=== PATIENT | male | born 1940 | race Caucasian/White ===

== ENCOUNTER 2017-10-22 09:40 | Inpatient (IN) | payer OTHER ==
[2017-10-22] MEDS ORDERED: IPRATROPIUM/ALBUTEROL 3 ML DEYVIAL IH ONE (09:57)
--- NOTE | 2017-10-22 10:15 | CPEKG ---
Heart Rate: 98 RR Interval: 612 P-R Interval: 116 QRSD Interval: 120 QT Interval: 396 QTC Interval: 506 P [place]: 90 QRS [place]: -116 T Wave [place]: -37 EKG Severity - ABNORMAL ECG - EKG Impression: SINUS RHYTHM EKG Impression: MULTIPLE ATRIAL PREMATURE COMPLEXES EKG Impression: IVCD, CONSIDER ATYPICAL RBBB Electronically Signed By: Indu Garcia 25-Oct-2017 09:08:27
[2017-10-22 10:22] LABS: PLATELET COUNT 184 10^3/uL (150-400)
[2017-10-22 10:45] LABS: PROTIME(PATIENT) 13.4 SEC (12.0-15.0)
[2017-10-22 11:07] LABS: CREATINE KINASE 2505 IU/L (0-224)
[2017-10-22] MEDS ORDERED: NS 1,000 ML IV ONE ×2 (12:25→13:32)
--- NOTE | 2017-10-22 12:25 | EDPHY ---
H & P HPI/ROS: CHIEF COMPLAINT: HISTORY OF PRESENT ILLNESS: REVIEW OF SYSTEMS: A TEN POINT REVIEW OF SYSTEMS WAS PERFORMED AND IS NEGATIVE WITH THE EXCEPTION OF THE ITEMS MENTIONED IN THE HPI. PAST MEDICAL HISTORY: PAST SURGICAL HISTORY: FAMILY HISTORY: SOCIAL HISTORY: GENERAL APPEARANCE: ALERT. VITAL SIGNS REVIEWED. * EYES: PUPILS EQUAL AND ROUND, NO CONJUNCTIVAL INJECTION, NO DISCHARGE. ANICTERIC. ENT, MOUTH: MUCOUS MEMBRANES ARE MOIST, NO OROPHARYNGEAL ERYTHEMA OR EDEMA. NECK: NO LYMPHADENOPATHY, SUPPLE. RESPIRATORY: LUNGS ARE CLEAR TO AUSCULTATION; NO WHEEZES, RALES, OR RHONCHI. CARDIOVASCULAR: REGULAR RATE AND RHYTHM; NO MURMUR, RUB, OR GALLOP. GASTROINTESTINAL: ABDOMEN IS SOFT AND NONTENDER, NO MASSES OR ORGANOMEGALY, BOWEL SOUNDS NORMAL. SKIN: WARM AND DRY, NO RASHES ON EXPOSED SKIN, NORMAL COLOR. BACK: NONTENDER TO PALPATION OVER THE THORACOLUMBAR SPINE. NO CVAT. EXTREMITIES: NO LOWER EXTREMITY EDEMA, NO CALF TENDERNESS OR SWELLING. NEUROLOGICAL: ALERT AND ORIENTED. MOVING ALL FOUR EXTREMITIES EASILY AND EQUALLY. CRANIAL NERVES II THROUGH XII ARE EXAMINED AND ARE INTACT (VISUAL ACUITY NOT TESTED). STRENGTH IS 5 OVER 5 BILATERALLY WITH TESTING OF ALL MAJOR MOTOR GROUPS. SENSATION IS INTACT TO LIGHT TOUCH OVER ALL 4 EXTREMITIES. DEEP TENDON REFLEXES ARE 2+ IN THE BICEPS AND KNEES BILATERALLY. GAIT IS NORMAL. TUMBIO-CW-[id number] IS PERFORMED ACCURATELY. PSYCHIATRIC: NORMAL AFFECT. - Personal History Current Tetanus/Diphtheria Vaccine: Unsure Current Tetanus Diphtheria and Acellular Pertussis (TDAP): Unsure - Social History Smoking Status: Current every day smoker Constitutional: Initial Vital Signs O2 Sat (%) 96 10/22/17 09:56 O2 (L/minute) 4 Allergies/Adverse Reactions: No Known Allergies Allergy (Unverified 10/22/17 10:08) Home Medications: Medication Instructions Recorded Aspirin 10/22/17 Atorvastatin Calcium [Lipitor] 10/22/17 Carbidopa 10/22/17 Omeprazole 10/22/17 Prevacid 10/22/17 Sinemet 10/100 MG (*) 10/22/17 traZODone 10/22/17 Medical Decision Making - Diagnostics Imaging Results: Imaging Impressions Hip X-Ray 10/22/17 09:56 Impression: There is no acute osseous abnormality identified. If there is further clinical concern regarding the patient's pain, either CT or MR imaging could be considered. Shoulder X-Ray 10/22/17 09:56 Impression: There is no acute osseous abnormality identified. If there is progression of the patient's shoulder pain, MR imaging could be scheduled. - Data Points Laboratory Results: Laboratory Results 10/22/17 10:18 10/22/17 10:18 10/22/17 10/22/17 10/22/17 10:18 10:18 10:18 WBC 8.04 10^3/uL 10^3/uL (3.80-9.50) RBC 4.38 10^6/uL L 10^6/uL (4.40-6.38) Hgb 15.0 g/dL g/dL (13.7-17.5) Hct 43.9 % % (40.0-51.0) MCV 100.2 fL H fL (81.5-99.8) MCH 34.2 pg H pg (27.9-34.1) MCHC 34.2 g/dL g/dL (32.4-36.7) RDW 13.0 % % (11.5-15.2) Plt Count 184 10^3/uL 10^3/uL (150-400) MPV 9.6 fL fL (8.7-11.7) Neut % (Auto) 84.3 % H % (39.3-74.2) Lymph % (Auto) 4.6 % L % (15.0-45.0) [place] % (Auto) 10.7 % % (4.5-13.0) Eos % (Auto) 0.0 % L % (0.6-7.6) Baso % (Auto) 0.2 % L % (0.3-1.7) Nucleat RBC Rel Count 0.0 % % (0.0-0.2) Absolute Neuts (auto) 6.77 10^3/uL H 10^3/uL (1.70-6.50) Absolute Lymphs (auto) 0.37 10^3/uL L 10^3/uL (1.00-3.00) Absolute Monos (auto) 0.86 10^3/uL H 10^3/uL (0.30-0.80) Absolute Eos (auto) 0.00 10^3/uL L 10^3/uL (0.03-0.40) Absolute Basos (auto) 0.02 10^3/uL 10^3/uL (0.02-0.10) Absolute Nucleated RBC 0.00 10^3/uL 10^3/uL (0-0.01) Immature Gran % 0.2 % % (0.0-1.1) Immature Gran # 0.02 10^3/uL 10^3/uL (0.00-0.10) PT 13.4 SEC SEC (12.0-15.0) INR 1.00 (0.83-1.16) APTT 27.5 SEC SEC (23.0-38.0) Sodium 139 mEq/L mEq/L (135-145) Potassium 5.5 mEq/L H mEq/L (3.5-5.2) Chloride 98 mEq/L mEq/L (97-110) Carbon Dioxide 25 mEq/l mEq/l (22-31) Anion Gap 16 mEq/L mEq/L (8-16) BUN 26 mg/dL H mg/dL (7-23) Creatinine 1.0 mg/dL mg/dL (0.7-1.3) Estimated GFR > 60 Glucose 97 mg/dL mg/dL (70-100) Calcium 9.1 mg/dL mg/dL (8.5-10.4) Creatine Kinase 2505 IU/L H IU/L (0-224) CK-MB (CK-2) Fraction 11.10 ng/mL H ng/mL (0.00-3.19) CK-MB (CK-2) % 0.4 % % (0.0-4.0) Creatine Kinase Interp NEGATIVE (NEGATIVE) Troponin I 0.078 ng/mL H ng/mL (0.000-0.034) Ethyl Alcohol < 10 mg/dL mg/dL (0-10) Medications Given: Discontinued Medications Albuterol/Ipratropium (Duoneb) 3 ml IH EDNOW ONE Stop: 10/22/17 09:58 Last Admin: 10/22/17 10:14 Dose: 3 ml Departure - Departure Referrals: NONE *PRIMARY CARE P,. [Primary Care Provider] - As per Instructions
--- NOTE | 2017-10-22 13:22 | EDPHY ---
H & P HPI/ROS: CHIEF COMPLAINT: Left shoulder pain HISTORY OF PRESENT ILLNESS: This is a 77-year-old male with a history of oxygen -dependent COPD and alcohol abuse who arrives by ambulance after being "found down "at home. He has no recollection of why he was on the floor. He does not know how long he had been on the floor. He admits to daily alcohol intake. His is out of town and apparently has not been eating or drinking much water. The patient tells me that his [id number]-[id number] took his oxygen tank. Paramedics report that a family member states he was last seen over 12 hr ago and at that time seemed normal. He complained initially of some left shoulder pain and some right hip pain. He has no other complaints. He denies headache, neck pain, back pain, difficulty breathing, and abdominal pain. He denies chest pain. I spoke with his on the phone and she tells me that he has had progressive cognitive decline over the past 6-8 months. REVIEW OF SYSTEMS: A ten point review of systems was performed and is negative with the exception of the items mentioned in the HPI. Past medical history: 1. Alcohol abuse 2. COPD, oxygen dependent 3. Hyperlipidemia 4. Peptic ulcer disease 5. TIA Past surgical history: Noncontributory Social history: He and his live independently in [place]. He drinks 2-3 alcoholic mixed drinks daily. General Appearance: Alert. Vital signs reviewed. Heart rate 108, blood pressure 162/89. Head: Normocephalic atraumatic. Eyes: Pupils equal and round, no conjunctival injection, no discharge. Anicteric. ENT, Mouth: Mucous membranes are moist, no oropharyngeal erythema or edema. Neck: Nontender to palpation over the cervical spine. No pain with active range of motion of his neck. Respiratory: Lungs are clear to auscultation; no wheezes, rales, or rhonchi. Cardiovascular: Regular rate and rhythm; no murmur, rub, or gallop. Gastrointestinal: Abdomen is soft and nontender, no masses or organomegaly, bowel sounds normal. Skin: Warm and dry, no rashes on exposed skin, normal color. There is a decubitus over the left hip. He has scabs along the anterior tibia on the left. Back: Nontender to palpation over the thoracolumbar spine. No CVAT. Extremities: No lower extremity edema, no calf tenderness or swelling. No long bone tenderness. Full active range of motion of his left shoulder. There is an abrasion over the posterior left shoulder. Mild tenderness to palpation over the right hip. He is able to move his hip. Neurological: Alert and oriented to person, place, and year. Moving all four extremities easily and equally. Cranial nerves II through XII are examined and are intact (visual acuity not tested). Strength is 5 over 5 bilaterally with testing of all major motor groups. Sensation is intact to light touch over all 4 extremities. Psychiatric: Normal affect. - Personal History Current Tetanus/Diphtheria Vaccine: Unsure Current Tetanus Diphtheria and Acellular Pertussis (TDAP): Unsure - Social History Smoking Status: Current every day smoker Constitutional: Initial Vital Signs Temperature (C) 37 C 10/22/17 09:39 Heart Rate 108 H 10/22/17 09:39 Respiratory Rate 20 10/22/17 09:39 Blood Pressure 162/89 H 10/22/17 09:39 O2 Sat (%) 98 10/22/17 09:39 O2 Delivery Mode Nasal Cannula O2 (L/minute) 4 Allergies/Adverse Reactions: No Known Allergies Allergy (Unverified 10/22/17 10:08) Home Medications: Medication Instructions Recorded Aspirin EC [Aspirin EC 325 mg (*)] 325 mg PO DAILY 10/22/17 Atorvastatin Calcium [Lipitor 20 20 mg PO HS 10/22/17 mg (*)] Omeprazole 20 mg PO HS 10/22/17 traZODone [traZODONE 50MG (*)] 50 mg PO HS PRN 10/22/17 Medical Decision Making - Diagnostics Imaging Results: Imaging Impressions Hip X-Ray 10/22/17 09:56 Impression: There is no acute osseous abnormality identified. If there is further clinical concern regarding the patient's pain, either CT or MR imaging could be considered. Shoulder X-Ray 10/22/17 09:56 Impression: There is no acute osseous abnormality identified. If there is progression of the patient's shoulder pain, MR imaging could be scheduled. ED Course/Re-evaluation: I spoke with [facility] in they have agreed to hospitalizing this patient at [facility]. X-ray of the shoulder and hip are negative for fracture or dislocation. I have not found evidence of traumatic injuries. He does not have neck or back pain. His abdomen is soft and nontender. Although he apparently falls frequently and is a fall risk, I do not think that his presentation today is the result of direct trauma. He arrived as a limited trauma activation, but I feel that this is more a situation of inability to care for himself at home--likely secondary to alcohol abuse, overall failure to thrive, dehydration, and perhaps dementia. Creatine kinases 2500. Potassium is slightly elevated at 5.5. I expect these to improve with rehydration. 1 L normal saline was ordered in the emergency department. I have not found evidence of traumatic injuries aside from an abrasion on his shoulder and his right hip. He has remained neurologically stable throughout his stay in the emergency department. At this point in time I do not suspect intracranial hemorrhage. I do not see evidence of direct trauma to the head. He has a troponin that is in the intermediate level. He does not complain of chest pain and cannot recall any chest pains prior to falling to the floor. Serial troponins will be obtained. I have an EKG from [place] and do not see significant changes. - Data Points Laboratory Results: Laboratory Results 10/22/17 10:18 10/22/17 10:18 10/22/17 10/22/17 10/22/17 10:18 10:18 10:18 WBC 8.04 10^3/uL 10^3/uL (3.80-9.50) RBC 4.38 10^6/uL L 10^6/uL (4.40-6.38) Hgb 15.0 g/dL g/dL (13.7-17.5) Hct 43.9 % % (40.0-51.0) MCV 100.2 fL H fL (81.5-99.8) MCH 34.2 pg H pg (27.9-34.1) MCHC 34.2 g/dL g/dL (32.4-36.7) RDW 13.0 % % (11.5-15.2) Plt Count 184 10^3/uL 10^3/uL (150-400) MPV 9.6 fL fL (8.7-11.7) Neut % (Auto) 84.3 % H % (39.3-74.2) Lymph % (Auto) 4.6 % L % (15.0-45.0) [place] % (Auto) 10.7 % % (4.5-13.0) Eos % (Auto) 0.0 % L % (0.6-7.6) Baso % (Auto) 0.2 % L % (0.3-1.7) Nucleat RBC Rel Count 0.0 % % (0.0-0.2) Absolute Neuts (auto) 6.77 10^3/uL H 10^3/uL (1.70-6.50) Absolute Lymphs (auto) 0.37 10^3/uL L 10^3/uL (1.00-3.00) Absolute Monos (auto) 0.86 10^3/uL H 10^3/uL (0.30-0.80) Absolute Eos (auto) 0.00 10^3/uL L 10^3/uL (0.03-0.40) Absolute Basos (auto) 0.02 10^3/uL 10^3/uL (0.02-0.10) Absolute Nucleated RBC 0.00 10^3/uL 10^3/uL (0-0.01) Immature Gran % 0.2 % % (0.0-1.1) Immature Gran # 0.02 10^3/uL 10^3/uL (0.00-0.10) PT 13.4 SEC SEC (12.0-15.0) INR 1.00 (0.83-1.16) APTT 27.5 SEC SEC (23.0-38.0) Sodium 139 mEq/L mEq/L (135-145) Potassium 5.5 mEq/L H mEq/L (3.5-5.2) Chloride 98 mEq/L mEq/L (97-110) Carbon Dioxide 25 mEq/l mEq/l (22-31) Anion Gap 16 mEq/L mEq/L (8-16) BUN 26 mg/dL H mg/dL (7-23) Creatinine 1.0 mg/dL mg/dL (0.7-1.3) Estimated GFR > 60 Glucose 97 mg/dL mg/dL (70-100) Calcium 9.1 mg/dL mg/dL (8.5-10.4) Creatine Kinase 2505 IU/L H IU/L (0-224) CK-MB (CK-2) Fraction 11.10 ng/mL H ng/mL (0.00-3.19) CK-MB (CK-2) % 0.4 % % (0.0-4.0) Creatine Kinase Interp NEGATIVE (NEGATIVE) Troponin I 0.078 ng/mL H ng/mL (0.000-0.034) Ethyl Alcohol < 10 mg/dL mg/dL (0-10) Medications Given: Albuterol/Ipratropium (Duoneb) 3 ml IH QID [place] Stop: 04/20/18 15:59 Last Admin: 10/22/17 15:37 Dose: 3 ml Discontinued Medications Albuterol/Ipratropium (Duoneb) 3 ml IH EDNOW ONE Stop: 10/22/17 09:58 Last Admin: 10/22/17 10:14 Dose: 3 ml Sodium Chloride (Ns) 1,000 mls @ 0 mls/hr IV EDNOW ONE; Wide Open PRN Reason: Protocol Stop: 10/22/17 12:26 Last Admin: 10/22/17 12:45 Dose: 1,000 mls Departure - Departure Disposition: [facility] Inpatient Acute Clinical Impression: Failure to thrive in adult, Alcohol abuse, Elevated troponin Condition: Fair
[2017-10-22] MEDS ORDERED: ALBUTEROL 3 ML DEYVIAL IH PRN (13:32)
[2017-10-22] MEDS ORDERED: ONDANSETRON DISINTEGRATING 4 MG TAB PO PRN (13:32)
[2017-10-22] MEDS ORDERED: ONDANSETRON 4 MG/2 ML VIAL IVP PRN (13:32)
--- NOTE | 2017-10-22 14:48 | GHP ---
[f rep st] HISTORY AND PHYSICAL DATE OF ADMISSION: 10/22/2017 CHIEF COMPLAINT: Found down. HISTORY OF PRESENT ILLNESS: This is a 77-year-old male with a history of COPD and a TIA, who EMS bro ught from his home, being found down on the ground, unable to get himself safely to food or water. P solo reports that his llycdp-ol-axl took his oxygen, and without oxygen he became weak, unstable an d fell, and was unable to get himself safely up off the ground. The patient reports that he falls fr equently at home. Currently, lives with his who is out of town in [place]. Since the time that she has left, he believes that he has not successfully had a meal or taken any meaningful water. Th e patient reports chronic shortness of breath. Denies any new cough or productive sputum. Denies an y subjective fevers or chills. Denies headaches. Denies vision changes. Denies chest pain or palpi tations. Denies abdominal pain, diarrhea. Denies dysuria, hematuria, or lower extremity edema. The patient is reporting left shoulder pain from a fall, but reports that it is more chronic in the last few days. PAST MEDICAL HISTORY: 1. COPD. 2. Hyperlipidemia. 3. History of a TIA. 4. History of peptic ulcer disease. 5. Reported dementia from his . 6. History of alcohol abuse. FAMILY HISTORY: Negative for strokes. SOCIAL HISTORY: The patient enjoys several grapefruit and vodkas a day. Denies tobacco or illicit d rugs. REVIEW OF SYSTEMS: A 10-point review of systems is negative with the exception of that reported in t he HPI. ADVANCED DIRECTIVES: Patient wishes to be full cor, full tube. His would be his medical decisi on maker. PHYSICAL EXAMINATION: VITAL SIGNS: Blood pressure 135/105, heart rate 95, respiratory rate 16, 95% on 4 L. GENERAL: This is a cachectic-appearing male in no acute distress. HEENT: Notable for dry mucous membranes. Eye exam is negative for any icterus. CARDIAC: Patient is irregularly irregular. Quiet systolic murmur. PULMONARY: Expiratory wheezing bilaterally. No rales or rhonchi are apprec iated. GASTROINTESTINAL: Positive bowel sounds. ABDOMEN: Soft and nontender. MUSCULOSKELETAL: N egative for any lower extremity edema. SKIN: P at has no rashes. Has 2, what appear to be pressure ulcerations, on his left hip. PSYCHIATRIC: He is cooperative and pleasant on interview and examinat ion. NEUROLOGIC: He is alert and oriented x3. LABORATORY DATA: White count 8.04, hematocrit 43.9, MCV 102, platelet count 184. Creatinine 1.0, BU N 26, potassium 5.5. CK 2505. Troponin 0.078. Blood alcohol less than 10. Hip x-ray, which I pers onally reviewed and interpreted, shows no acute bony abnormalities. EKG, which I personally reviewed and interpreted, shows right bundle branch block, sinus rhythm, with no acute ST changes, similar to old provided by Shaka. ASSESSMENT AND PLAN: This is a 77-year-old male presenting found down. 1. Failure to thrive. The patient is a home without appropriate support and appears unable to safel y keep himself nourished or safe. We will admit the patient for fluid hydration resuscitation and co nsult physical therapy and occupational therapy for safety evaluations. 2. Severe protein-calorie malnutrition. Patient appears quite cachectic on examination. Suspect th is is likely progressive over time secondary to poor access to food and chronically poor intake. 3. Chronic obstructive pulmonary disease. Patient is wheezing on examination. We will send a respi ratory viral panel and order a chest x-ray. We will treat with oral prednisone currently. Avoid emp iric antibiotics at this time. 4. History of transient ischemic attack. We will continue his home medications which appear to incl ude aspirin and statin. 5. Prophylaxis with Lovenox. 6. Diet: Regular. 7. Indeterminate troponin. The patient is without chest pain complaints. EKG appears baseline comp ared to an old provided by Shaka. We will follow serial troponins and telemetry this evening and ca n make a decision related to additional risk stratification in the morning. DISPOSITION: I am expecting greater than 2 midnights, as the patient is deconditioned, weak, and john l need evaluations for safe disposition. I have discussed the case with the emergency room physician . Patient will be triaged to the PCU for cardiac monitoring, serial troponins, and EKGs. /[id number]/MODL
[2017-10-22] MEDS: IPRATROPIUM/ALBUTEROL 3 ML DEYVIAL IH SCH ×2 (15:37→21:10)
--- NOTE | 2017-10-22 15:40 | ASMTLACE ---
MACKENZIE Acuity / Level of Answers: Yes Care: Did the patient have an inpatient admission? Comorbidities - select Answers: Cerebrovascular disease all that apply (CVA, TIA, aneurysms, vasc ular dementia) Chronic pulmonary disease Dementia History of falls # of Emergency department Answers: 1-2 visits in the last 6 months Social determinants Answers: History of substance abuse (ETHO, street drugs, prescription drugs, etc.) Score: 16 Date Signed: 10/22/2017 03:40 PM Electronically Signed By:Kendra Berry RN
--- NOTE | 2017-10-22 16:20 | PDMN ---
Medical Necessity Medical necessity: C/M review: Patient meets INPT criteria under [facility] Systemic or infectious condition GRG (Severe protein-calorie malnutrition, failure to thrive): Acute and persistent failure to thrive, severe protein-calorie malnutrition, deconditioning, generalized weakness, indeterminate troponin, - 0.078, creatine kinase 2505, CK-MB fraction 11.10, BMI 19.6 kg/m2, requiring IV fluids, planned Wound Care consult, ongoing cardiac monitoring, serial troponins , EKGs, pulse oximetry, supplemental O2, acute inpt PT/OT, comorbid patient found down on the ground unable to safely get himself to food or water, fall prior to this admission, , COPD, hyperlipidemia, history of frequent falls at home, TIA, peptic ulcer disease, dementia, alcohol abuse MD anticipates > 2 [place] LOS for ongoing med nec for eval and [place] of above. patient is Medicare Advantage which follows guidelines CMS puts forth.
--- NOTE | 2017-10-22 16:20 | ASMTCMCOM ---
CM Note CM Note Notes: Patient brought into the ED via EMS after being found down at home in [place], where he lives with his , Cuca Tipton ([phone]) but she is in [place] at this time. This CM left a voicemail for Cuca. ED RN Paco states he spoke with Cuca over the phone a couple of times and she plans on returning to [place] on Monday. Patient admitted for FTT and malnutrition. Patient has a history of COPD, TIA, dementia (per Cuca) and ETOH abuse. Patient is listed as "Severino Tipton" with [facility] and with Vaishali, his home oxygen provider. Spoke with Vaishali ([phone]); pt had E-cylinders delivered to his home in Sep 2017 and pt should have a concentrator at home. Per chart review, pt reported his xakkvx-[id number] took his oxygen and so without his O2 he became weak, unstable and has had a few falls. Waiting to hear from Cuca to verify whether patient has been without oxygen. Patient's PCP is Dr. Samir Geronimo ([phone]) with [facility] out of [place]. Anticipate PT/OT/CORPORATE STRATE[employer] ASSOCIATE evals, exact DC needs unknown. CM to follow. Date Signed: 10/22/2017 04:19 PM Electronically Signed By:Kendra Berry RN
--- NOTE | 2017-10-22 18:59 | CPEKG ---
Heart Rate: 108 RR Interval: 556 P-R Interval: 105 QRSD Interval: 132 QT Interval: 364 QTC Interval: 488 P [place]: 0 QRS [place]: 52 T Wave [place]: -84 EKG Severity - ABNORMAL ECG - EKG Impression: SINUS TACHYCARDIA frequent PVC EKG Impression: RIGHT BUNDLE BRANCH BLOCK Electronically Signed By: John Christine 23-Oct-2017 08:02:22
--- NOTE | 2017-10-22 21:02 | PDGENHP ---
History & Physical Chief Complaint: FOUND DOWN History of Present Illness: 77 MALE FOUND DOWN AT HOME AND CO WEAKNESS/ SAYS HE RAN OUT OF OXYGEN AND HAS BEEN EATING POORLY/ NO APPARENT TRAUMA DESPITE FULL ACTIVATION. PT ADMITTED TO MEDICINE FOR EVAL Pertinent Past, Social, Family History: HTN, HYPERLIPIDEMIA, COPD. MEDS LIPITOR. NKA. ROS- EXCEPT COPD. FAM HX NONCONTRIB Relevant Physical Exam: GEN TALKATIVE 77 MALE IN NO ACUTE DISTRESS. HEENT NONICTERIC, NO ADENOPATHY, PERRLA, SUPPLE, NO SX OF TRAUMA, NO BRUITS. CHEST CLEAR WITH COPD. COR RR. ABD SOFT, NONTENDER. GEN OK. EXTREM FULL ROM , FULL PULSES. NEURO INTACT Cardiorespiratory Assessment: GENERAL WEAKNESS, COPD, FOUND DOWN NO ACUTE TRAUMA. ADMIT TO IM, WILL RECHECK IN AM
[2017-10-22] MEDS: ACETAMINOPHEN 325 MG TAB PO PRN (21:07)
[2017-10-23 04:12] LABS: PLATELET COUNT 126 10^3/uL (150-400)
[2017-10-23 04:19] LABS: CREATINE KINASE 1262 IU/L (0-224)
[2017-10-23] MEDS: IPRATROPIUM/ALBUTEROL 3 ML DEYVIAL IH SCH ×4 (05:36→21:22)
[2017-10-23] MEDS ORDERED: PANTOPRAZOLE SODIUM 40 MG TAB PO SCH ×2 (09:00→21:00)
[2017-10-23] MEDS: ASPIRIN EC 325 MG TAB PO SCH (09:52)
[2017-10-23] MEDS: NICOTINE 21 MG/24 HR PATCH TD SCH (09:52)
[2017-10-23] MEDS: ENOXAPARIN 40 MG/0.4 ML SYR SC SCH (09:55)
[2017-10-23] MEDS: ACETAMINOPHEN 325 MG TAB PO PRN ×2 (10:25→20:24)
--- NOTE | 2017-10-23 11:38 | ASMTCMCOM ---
CM Note CM Note Notes: Spoke with pt's , Cuca Tipton ([phone]) and she confirmed she will be returning to [place] from [place] tomorrow evening; she's visiting her sister in [place]. We discussed patient's statements that his upumbn-ab-zvb took his oxygen and Cuca says this is not true and patient should still have his all of his home oxygen supplies (via [employer]) in working order at home. Cuca was provided [employer] direct line [phone]. CM to follow. Date Signed: 10/23/2017 11:37 AM Electronically Signed By:Kenrda Berry RN
--- NOTE | 2017-10-23 11:45 | WOCRNPDOC ---
DANELLECRAngelia Advanced Assessment Note - Skin Integrity Problem, Advanced Assess Left Knee Dressing Type: Open to Air Wound Bed Constitution: Scab, Unstable Eschar Site Measurement - Head-to-Toe Length X Width X Depth (cm): 2x1.5x0 Pressure Injury Stage: Unstageable Pressure Injury Present on Admit: Yes Skin Integrity Problem Comment: wound care will follow all wounds and will round later this week to check status. Left Shoulder Dressing Type: Open to Air Exudate Amount: None Gloria Wound Tissue: Erythema, Non-blanching Wound Bed Constitution: Unstable Eschar Site Measurement - Head-to-Toe Length X Width X Depth (cm): 1x1x0 Pressure Injury Stage: Unstageable Pressure Injury Present on Admit: Yes Skin Integrity Problem Comment: Evolving DTI now presents as unstagable with eschar. Wound care will follow. Head Dressing Type: Open to Air Site Measurement - Head-to-Toe Length X Width X Depth (cm): 1x0.5x0 (left of midline), 1x0.3x0(midline) Pressure Injury Stage: Deep Tissue Injury (DTI) Pressure Injury Present on Admit: Yes Left Hip Dressing Type: Open to Air Exudate Amount: None Wound Bed Constitution: Red/Frontier - Non Granular Tissue, Loose Slough Site Measurement - Head-to-Toe Length X Width X Depth (cm): 2.8x2.8x0.1 Pressure Injury Stage: Deep Tissue Injury (DTI) Pressure Injury Present on Admit: Yes Skin Integrity Problem Comment: Evolving DTI. Left Illiac Crest Pressure Injury Dressing Type: Open to Air Wound Bed Color: Frontier, Yellow Wound Bed Constitution: Red/[place] - Non Granular Tissue, Loose Slough Site Measurement - Head-to-Toe Length X Width X Depth (cm): 3x5.5x0.1 Pressure Injury Stage: Deep Tissue Injury (DTI) Pressure Injury Present on Admit: Yes Skin Integrity Problem Comment: Evolving and desquamating DTI. Left Inferior Scapula Pressure injury Dressing Type: Open to Air Site Measurement - Head-to-Toe Length X Width X Depth (cm): 4x4x0 Pressure Injury Stage: Stage 1 Pressure Injury Present on Admit: Yes
[2017-10-23] MEDS ORDERED: PNEUMOC 13-VAL CONJ-DIP CRM/PF 0.5 ML SYR IM ONE (13:24)
--- NOTE | 2017-10-23 15:28 | ASMTCMCOM ---
CM Note CM Note Notes: 10/23/2017 Case Management Note Phone call from Cuca. PT recommending SNF rehab. in agreement for SNF rehab. Cuca to return to [place] from [place] tomorrow at 14:30 and plans to visit pt in the hospital by dinner. Met w/pt to discuss PT recommendation for SNF rehab. Pt refused to discuss. Pt agreed to home care agency. [facility] at [phone] who asked for referrals to [facility] and [facility]. Faxed referrals through all scripts. Case Management d/c poc: home with homeowner association manager PT OT as pt is refusing to consider SNF rehab. Case Management to follow. Date Signed: 10/23/2017 03:17 PM Electronically Signed By:Sowmya Fermin RN
--- NOTE | 2017-10-23 16:05 | TRAUMAPN ---
Assessment/Plan: This is a this is a 77-year-old gentleman who was found down at home known COPD oxygen-dependent. Patient was seen in consultation by Dr. Briscoe from trauma surgery due to mechanism of Injury/arrival Tertiary survey The patient would like to go home but safe discharge is a barrier at this point weight. Alert oriented no distress Multiple abrasions upper and lower extremities and scalp none appear recent Regular rate and rhythm Clear to auscultation Abdomen soft nontender Moving all extremities No acute fractures/dislocation noted Skin multiple abrasions Impression fall/unknown reason for being found down no acute trauma issues Plan: Sign off at this time follow-up trauma surgery call if appropriate/ requested on this admission Objective: Vital Signs Temp Pulse Resp BP Pulse Ox 36.7 C 98 15 111/78 97 10/23/17 11:14 10/23/17 11:14 10/23/17 11:14 10/23/17 11:14 10/23/17 11:14 Microbiology 10/22/17 15:40 Respiratory Panel (PCR) - Final Nasal, Sinus - [place] Viral Transport No Organism Detected Laboratory Results 10/23/17 03:55 10/23/17 03:55 10/22/17 10/23/17 10/24/17 05:59 05:59 05:59 Intake Total 2950 Output Total 675 Balance 2275 PT 13.4 SEC (12.0-15.0) 10/22/17 10:18 INR 1.00 (0.83-1.16) 10/22/17 10:18
[2017-10-23] MEDS ORDERED: LORazepam 1 MG TAB PO PRN (16:55)
--- NOTE | 2017-10-23 17:01 | HOSPPROG ---
Hospitalist Progress Note Assessment/Plan: # intermittent Atiral Fibrillation -TELE (personally reviewed and interpreted) intermittent Atrial fibrillation in 90-110's -patient is terrible candidate for full-dose anticoagulation secondary to falls - continue home dose aspirin - monitor closely for possible alcohol withdrawal - no rate control meds at this time # failure to thrive- patient without adequate nourishment or hydration at home while his was traveling CK improved from 6435-2416 this a.m. with IV fluid hydration - PT CADY schneider says and safety planning for disposition # severe protein calorie malnutrition BMI 19 at presentation - the patient took excellent food today when provided - continue to monitor # chronic hypoxic respiratory failure secondary to COPD- no wheezing on examination- oxygen saturations 96% on 4 L - no indication for ongoing steroid therapy - continue inhaled beta agonist # alcohol abuse- patient consumes regular alcohol when at home no clinical signs of withdrawal currently - write for CIWA overnight # history of transient ischemic attack- continue home statin and aspirin no acute neurologic symptoms # Prophylaxis with Lovenox. # Diet: Regular. # Indeterminate troponin. The patient is without chest pain complaints. EKG appears baseline compared to an old provided by [place]. Troponin steady at 0.07 overnight - the patient without chest pain complaints -defer risk stratification to the outpatient setting DISPOSITION: I am expecting greater than 2 midnights, as the patient is deconditioned, weak, and will need evaluations for safe disposition. I have discussed the case with the RN- we will monitor for alcohol withdrawal this evening Subjective: Tolerating food Objective: Vital Signs Temp Pulse Resp BP Pulse Ox 36.7 C 97 18 119/92 H 98 10/23/17 11:14 10/23/17 16:48 10/23/17 16:48 10/23/17 16:48 10/23/17 16:48 Microbiology 10/22/17 15:40 Respiratory Panel (PCR) - Final Nasal, Sinus - [place] Viral Transport No Organism Detected Laboratory Results 10/23/17 03:55 10/23/17 03:55 10/22/17 10/23/17 10/24/17 05:59 05:59 05:59 Intake Total 2950 Output Total 675 Balance 2275 PT 13.4 SEC (12.0-15.0) 10/22/17 10:18 INR 1.00 (0.83-1.16) 10/22/17 10:18 - Physical Exam Constitutional: cachectic Eyes: anicteric sclera Ears, Nose, Mouth, Throat: dry mucous membranes Cardiovascular: irregularly irregular Respiratory: no respiratory distress, No expiratory wheeze Gastrointestinal: normoactive bowel sounds Genitourinary: no bladder fullness Skin: warm Musculoskeletal: No asymmetric calves Neurologic: AAOx3 Psychiatric: interacting appropriately Lymph, Heme, Immunologic: no cervical LAD ICD10 Worksheet Patient Problems: Problems Problem Status Onset Alcohol abuse Acute Elevated troponin Acute Failure to thrive in adult Acute
[2017-10-23] MEDS ORDERED: LIDOCAINE 2% VISCOUS 15 ML UDCUP PO PRN (18:13)
[2017-10-23] MEDS ORDERED: MAG HYDROX/AL HYDROX/SIMETH 30 ML UDCUP PO PRN (18:13)
[2017-10-23] MEDS ORDERED: HYOSCYAMINE SULFATE 0.125 MG TAB PO PRN (18:13)
[2017-10-23] MEDS ORDERED: ATORVASTATIN CALCIUM 20 MG TAB PO SCH (21:00)
[2017-10-24 04:30] VITALS: TEMP 97.9
[2017-10-24] MEDS: IPRATROPIUM/ALBUTEROL 3 ML DEYVIAL IH SCH ×3 (05:36→16:51)
[2017-10-24] MEDS ORDERED: THIAMINE HCL 500 MG in NS 250 ML IV SCH (09:00)
[2017-10-24] MEDS: ASPIRIN EC 325 MG TAB PO SCH (09:05)
[2017-10-24] MEDS: ENOXAPARIN 40 MG/0.4 ML SYR SC SCH (09:05)
[2017-10-24] MEDS: NICOTINE 21 MG/24 HR PATCH TD SCH (09:07)
[2017-10-24 11:58] VITALS: BP 122/79; PULSE 125; RESP 16
[2017-10-24 16:09] VITALS: O2SAT 80
--- NOTE | 2017-10-24 16:09 | PDHOMEO2F ---
Home Oxygen Face to Face Home Orders: I certify that a physician or a nurse practitioner or physician's facilities maintenance assistant has had a pbvr-fa-yozu encounter with this patient on the date of this order due to the diagnosis listed, which relates to the primary reason the patient requires home oxygen. Alternative treatments have been tried, or considered, and deemed ineffective. It is anticipated that supplemental oxygen will result in improvement with treatment. Home oxygen qualifying diagnosis: copd SpO2 on room air (%): 80% Frequency of home oxygen needed: continuous Home oxygen liters per minute: 2 Home oxygen delivery device: nasal cannula Concentrator: Yes E-tanks for mobility and back up: Yes If ordering portable O2, is the patient mobile in the home?: Yes I certify that, based on these findings, the home oxygen is medically necessary for this patient for the following length of time. Length of time home oxygen needed: 99 years
--- NOTE | 2017-10-24 16:19 | PDIAF ---
- Diagnosis Diagnosis: copd- failure to thrive Code Status: Full Code - Medication Management Discharge Medications: Medications to Continue on Transfer Aspirin EC [Aspirin EC 325 mg (*)] 325 mg PO DAILY 10/22/17 [Last Taken 10/19/17 ] Atorvastatin Calcium [Lipitor 20 mg (*)] 20 mg PO HS 10/22/17 [Last Taken ] Omeprazole 20 mg PO HS 10/22/17 [Last Taken 10/19/17] traZODone [traZODONE 50MG (*)] 50 mg PO HS PRN 10/22/17 [Last Taken Unknown] Discharge Medications: Refer to the Discharge Home Medication list for PRN reason. - Orders Services needed: Home Care, Registered Nurse, Physical Therapy Home Care Face to Face: I certify that this patient was under my care and that I had the required [id number] encounter meeting the encounter requirements on the discharge day. My findings support the fact that the patient is homebound as defined in Home Care Face to Face Continued: CMS Chapter 7 Medicare Benefits Manual 30.1.1 , The condition of the patient is such that there exists a normal inability to leave home and consequently, leaving home would require a considerable and taxing effort. Diet Recommendation: no restrictions on diet Diet Texture: Regular Texture Diet - Follow Up Care Current Providers and Referrals: NONE *PRIMARY CARE P,. [Primary Care Provider] - As per Instructions
--- NOTE | 2017-10-24 16:40 | ASDISCHSUM ---
Discharge Information Plan Status:Home with Home Health Medically Cleared to Leave:10/23/2017 Discharge Date:10/23/2017 D/C Disposition:Home Health Service ADT D/C Disposition:Home, Routine, Self-Care Projected Discharge Date:10/25/2017 11:00 AM Transportation at D/C:Family Discharge Delay Reason: Follow-Up Date:10/25/2017 11:00 AM Discharge Slot: Final Diagnosis: Placement Information Referral Type:*Home Health Care Services Referral ID:[id number] Provider Name:[facility] Address 1:[address] Address 2: City:[place] Selection Factors: State:[place] Patient Contact Information Contact Name:DAMIAN Relationship: Address: Work Phone: City: [facility] Phone: [facility] Code: Email: Financial Information Financial Class:Medicare Advantage Plans Primary Plan Desc:[employer] MEDICARE ADV IP Primary Plan Number:[id number] Secondary Plan Desc: Secondary Plan Number: Assessment Information LACE LACE Acuity / Level of Answers: Yes Care: Did the patient have an inpatient admission? Comorbidities - select Answers: Cerebrovascular disease all that apply (CVA, TIA, aneurysms, vasc ular dementia) Chronic pulmonary disease Dementia History of falls # of Emergency department Answers: 1-2 visits in the last 6 months Social determinants Answers: History of substance abuse (ETHO, street drugs, prescription drugs, etc.) Score: 16 Date Signed: 10/22/2017 03:40 PM Electronically Signed By:Kendra Berry RN [facility] CM Progress Note CM Note CM Note Notes: Patient brought into the ED via EMS after being found down at home in [place], where he lives with his , Cuca Tipton ([phone]) but she is in [place] at this time. This CM left a voicemail for Ccua. ED RN Paco states he spoke with Cuca over the phone a couple of times and she plans on returning to [place] on Monday. Patient admitted for FTT and malnutrition. Patient has a history of COPD, TIA, dementia (per Cuca) and ETOH abuse. Patient is listed as "Severino Tipton" with [facility] and with Vaishali, his home oxygen provider. Spoke with Vaishali ([phone]); pt had E-cylinders delivered to his home in Sep 2017 and pt should have a concentrator at home. Per chart review, pt reported his ycjgre-[id number] took his oxygen and so without his O2 he became weak, unstable and has had a few falls. Waiting to hear from Cuca to verify whether patient has been without oxygen. Patient's PCP is Dr. Samir Geronimo ([phone]) with [facility] out of [place]. Anticipate PT/OT/SCOURING TRAIN OPERATOR evals, exact DC needs unknown. CM to follow. Date Signed: 10/22/2017 04:19 PM Electronically Signed By:Kendra Berry RN [facility] Progress Note CM Note CM Note Notes: Spoke with pt's , Cuca Tipton ([phone]) and she confirmed she will be returning to [place] from [place] tomorrow evening; she's visiting her sister in [place]. We discussed patient's statements that his jpdnhm-nt-tap took his oxygen and Cuca says this is not true and patient should still have his all of his home oxygen supplies (via [employer]) in working order at home. Cuca was provided 2W Manager [employer] direct line [phone]. CM to follow. Date Signed: 10/23/2017 11:37 AM Electronically Signed By:Kendra Berry RN [facility] CM Progress Note CM Note CM Note Notes: 10/23/2017 Case Management Note Phone call from Cuca. PT recommending SNF rehab. in agreement for SNF rehab. Cuca to return to [place] from [place] tomorrow at 14:30 and plans to visit pt in the hospital by dinner. Met w/pt to discuss PT recommendation for SNF rehab. Pt refused to discuss. Pt agreed to home care agency. Notified [facility] dental coordinator at [phone] who asked for referrals to [facility] and [facility]. Faxed referrals through all scripts. Case Management d/c poc: home with model home sales greeter PT OT as pt is refusing to consider SNF rehab. Case Management to follow. Date Signed: 10/23/2017 03:17 PM Electronically Signed By:Sowmya Fermin RN Case Management Discharge Plan Note Case Management Discharge Discharge Order Complete? Answers: Yes Patient to Obtain Answers: via Family Medications Transportation Arranged Answers: Family/Friends Faxed Final Orders Answers: Yes Agency/Facility Transfer Answers: Yes Report Printed & Faxed to Receiving Agency Discharge Comments Notes: 10/24/2017 Spoke with Rosey care nurse rn at [facility] [phone]. Rosey to ensure that Home Care will start tomorrow if [facility] is uanble to take pt. Pt is 16 miles outside the coverage area of [facility]. Case Management requested a home safety eval. transported home. Date Signed: 10/24/2017 04:39 PM Electronically Signed By:Sowmya Fermin RN Intervention Information Intervention Type:*IM-Signed Date of Service:10/24/2017 04:35 PM Patient Type:Inpatient Staff Member:Bella Dacosta Hours: Discipline: Severity: Comment:
--- NOTE | 2017-10-24 22:44 | GDS ---
[f rep st] DISCHARGE SUMMARY DISCHARGE DIAGNOSES: Include: 1. Failure to thrive. 2. Chronic obstructive pulmonary disease. 3. Chronic hypoxic respiratory failure. 4. Severe protein-calorie malnutrition. 5. Recurrent falls. 6. Chronic pressure ulcerations. HISTORY OF PRESENT ILLNESS: A 77-year-old male, with a known history of oxygen-dependent COPD, who w as brought from home by EMS after being found down. For details of patient's initial presentation, jose e paulino see the history and physical dated 10/22/2017. CONSULTATIVE SERVICES: None. PROCEDURES: 1. X-ray of the left shoulder shows no acute osseous abnormality. 2. X-ray of the left hip show no acute osseous abnormality. HOSPITAL COURSE: 1. Failure to thrive. Patient was found on the floor, unable to get up after a fall. left tow n and he reports not being able to safely access food or water while she had been gone for several da ys. Patient was admitted, fluid resuscitated with improvement in his CK upon admission 2500 down to 1200 in the first 24 hours. He took excellent oral intake of a regular diet when provided to him. S ocial Work was involved in disposition. Patient and is refusing long term placement, but is agreeable to home health and home physical therapy. He is being discharged home in the care of his with home health, nursing, and PT. 2. Chronic hypoxic respiratory failure secondary to COPD. Patient was not wheezing on examination t he morning after presentation. Suspect simply without oxygen during his normal presentation. Chest x-ray obtained in the emergency department was negative for any infiltrates or concerns for pneumonia . Patient was simply continued on his outpatient inhaled regimen with supplemental oxygen. His exam is clear on the day of disposition. 3. Severe protein-calorie malnutrition. Patient will need closer attention to caloric intake upon d isposition. 4. Pressure ulceration. Patient presented with skin wounds on his left hip that were attended to by Wound Care during this hospital stay. MEDICATIONS AT THE TIME OF DISPOSITION: Please reference the med rec printed 10/24/2017. FOLLOWUP APPOINTMENTS: Include with his primary care provider in the next 7-10 days for his first po st disposition followup. Patient is being discharged home with home health and home PT. PENDING STUDIES: At the time of this dictation are none. BILLING: I spent greater than 30 minutes in the planning and coordination of this discharge. /[id number]/MODL
[2017-10-26] MEDS ORDERED: THIAMINE HCL 100 MG TAB PO SCH (16:55)
== END 2017-10-24 18:50 | disposition home health service (06) | DRG 640 ==
LOC: OBSVTOIN 13:34 → F2W 15:11
PROVIDERS: ADMIT Hospitalist; ATTEND Hospitalist
DX: R62.7 Adult failure to thrive (principal); E43 Unspecified severe protein-calorie malnutrition; J96.11 Chronic respiratory failure with hypoxia; R53.1 Weakness; I10 Essential (primary) hypertension; E78.5 Hyperlipidemia, unspecified; J44.9 Chronic obstructive pulmonary disease, unspecified; R29.6 Repeated falls; L89.229 Pressure ulcer of left hip, unspecified stage; L89.891 Pressure ulcer of other site, stage 1; L89.890 Pressure ulcer of other site, unstageable; F10.10 Alcohol abuse, uncomplicated; F03.90 Unspecified dementia, unspecified severity, without behavioral disturbance, psychotic disturbance, mood disturbance, and anxiety; Z99.81 Dependence on supplemental oxygen; Z86.73 Personal history of transient ischemic attack (TIA), and cerebral infarction without residual deficits; W19.XXXA Unspecified fall, initial encounter; Y92.019 Unspecified place in single-family (private) house as the place of occurrence of the external cause; I48.91 Unspecified atrial fibrillation; Z68.1 Body mass index [BMI] 19.9 or less, adult
CPT/HCPCS: 97116-GP; 97162-GP; 97166-GO; 97530-GP; 97535-GO; G0390; G0480; G8978-GP-CJ; G8979-GP-CI; G8987-GO-CK; G8988-GO-CJ; J1650; J3411